=== PATIENT | female | born 1960 | race Two or more races ===

== ENCOUNTER 2022-02-09 15:34 | Inpatient (IN) | payer MEDICARE, OTHER ==
[~2022-02-09] VITALS: Ht 154.9 cm; Wt 68.0 kg
[2022-02-09] MEDS ORDERED: SODIUM CHLORIDE 0.9% 1,000 ML IV ONE (18:30)
[2022-02-09 19:31] LABS: Basophils # (auto) 0.1 10 ^3/uL (0-0.2); Basophils % (auto) 0.6 % (0.0-2.0); Eosinophils # (auto) 0 10 ^3/uL (0-0.8); Eosinophils % (auto) 0.2 % (0.0-7.0); Hematocrit 40.1 % (36.0-46.0); Hemoglobin 13.1 g/dL (12.2-16.2); Lymphocytes # (auto) 1.8 10 ^3/uL (0.4-5.4); Lymphocytes % (auto) 15.7 % (10.0-50.0); Mean Corpuscular Hgb Conc. 32.7 g/dL (32.0-36.0); Mean Corpuscular Volume 88.7 fL (80.0-100.0); Monocytes # (auto) 0.6 10 ^3/uL (0-1.3); Monocytes % (auto) 5.5 % (0.0-12.0); Red Blood Cells 4.51 10^6/uL (4.0-5.20); Red Cell Distribution Width 13.8 % (11.8-14.3); White Blood Cell 11.6 10^3/uL (4.4-10.8)
[2022-02-09 19:56] LABS: Albumin 4.1 g/dL (3.4-5.0); Calcium 9.5 mg/dL (8.5-10.1); Potassium 4.3 mmol/L (3.5-5.1)
[2022-02-09 20:00] LABS: BUN/Creatinine Ratio 14.2; Bilirubin, Total 0.5 mg/dL (0.2-1.0); Total Protein 7.6 g/dL (6.4-8.2)
[2022-02-09] MEDS ORDERED: ASPirin 325 MG TAB PO ONE (20:30)
[2022-02-09 23:52] LABS: Urine Bacteria MOD /hpf (None Seen); Urine Blood 1+ /uL (Negative); Urine Specific Gravity 1.004 (1.001-1.035); Urine WBC 2 /hpf (0 - 5)
[2022-02-10] MEDS ORDERED: NITROGLYCERIN 0.4 MG SL TAB SL PRN (05:15)
[2022-02-10] MEDS ORDERED: ACETAMINOPHEN 325 MG TAB PO PRN (05:15)
[2022-02-10] MEDS ORDERED: ONDANSETRON HCL 4 MG/2 ML VIAL IV PRN (05:15)
[2022-02-10] MEDS ORDERED: MORPHINE SULFATE INJ 2 MG/ml SYRG IV PRN (05:15)
[2022-02-10] MEDS: ENOXAPARIN SOD 40 MG/0.4 ML SYRINGE SC SCH (09:58)
[2022-02-10] MEDS: ASPirin 81 mg TAB PO SCH (09:58)
[2022-02-10] MEDS: PANTOPRAZOLE 40 MG TAB PO SCH (09:58)
[2022-02-10] MEDS: NICOTINE 21MG/24 HR TOPICAL PATCH TD SCH (09:58)
[2022-02-10] MEDS ORDERED: ENOXAPARIN SOD 40 MG/0.4 ML SYRINGE SC ONE (11:00)
[2022-02-10] MEDS ORDERED: ATORVASTATIN 20 MG TAB PO ONE (11:00)
[2022-02-10] MEDS ORDERED: CLOPIDOGREL BISULFATE 75 MG TAB PO ONE (11:00)
[2022-02-10] MEDS: SODIUM CHLORIDE 0.9% 1,000 ML IV SCH ×2 (12:13→23:55)
[2022-02-10 22:00] VITALS: BP 146/72
[2022-02-10 23:44] VITALS: BP 146/72
[2022-02-11] VITALS (7 sets, daily range): BP systolic 127–154; BP diastolic 48–73
[2022-02-11] MEDS ORDERED: LISI-716 PO (00:42)
[2022-02-11] MEDS ORDERED: LEVO50TA7 PO (00:42)
[2022-02-11 06:36] LABS: BUN/Creatinine Ratio 21.5; Calcium 8.2 mg/dL (8.5-10.1); Potassium 4.1 mmol/L (3.5-5.1)
[2022-02-11] MEDS: SODIUM CHLORIDE 0.9% 1,000 ML IV SCH ×2 (08:00→18:00)
[2022-02-11] MEDS: ASPirin 81 mg TAB PO SCH (09:39)
[2022-02-11] MEDS: PANTOPRAZOLE 40 MG TAB PO SCH (09:39)
[2022-02-11] MEDS: ENOXAPARIN SOD 40 MG/0.4 ML SYRINGE SC SCH (09:41)
[2022-02-11] MEDS: NICOTINE 21MG/24 HR TOPICAL PATCH TD SCH (09:41)
[2022-02-12] MEDS: SODIUM CHLORIDE 0.9% 1,000 ML IV SCH (04:00)
[2022-02-12 05:00] VITALS: BP 141/73
[2022-02-12] MEDS ORDERED: ADENOSINE 57 MG in GIVE UN-DILUTED 0 ML IV ONE (08:00)
[2022-02-12 09:00] VITALS: BP 167/64
[2022-02-12] MEDS: ASPirin 81 mg TAB PO SCH (10:24)
[2022-02-12] MEDS: PANTOPRAZOLE 40 MG TAB PO SCH (10:25)
[2022-02-12] MEDS: ENOXAPARIN SOD 40 MG/0.4 ML SYRINGE SC SCH (10:25)
[2022-02-12] MEDS: NICOTINE 21MG/24 HR TOPICAL PATCH TD SCH (10:26)
[2022-02-12 13:37] VITALS: BP 125/56
[2022-02-12] MEDS ORDERED: LEVOTHYROXINE SODIUM 50 MCG TAB PO ONE (15:45)
[2022-02-12] MEDS ORDERED: ATOR20TA50 PO (16:08)
[2022-02-12 17:00] VITALS: BP 127/63
[2022-02-13] MEDS ORDERED: LEVOTHYROXINE SODIUM 50 MCG TAB PO SCH (07:00)
[2022-02-13] MEDS ORDERED: LISINOPRIL 10 MG TAB PO SCH (10:00)
== END 2022-02-12 18:30 | disposition home or self-care (01) | DRG 281 ==
LOC: EDBD 15:34 → ER 15:34 → TELE 02-10 05:15 → TELE-EAST 02-10 21:15
PROVIDERS: ADMIT Nurse Practitioner; ATTEND Internal Medicine Nephrology
DX: R07.9 Chest pain, unspecified (principal); I21.A1 Myocardial infarction type 2; N17.9 Acute kidney failure, unspecified; R65.10 Systemic inflammatory response syndrome (SIRS) of non-infectious origin without acute organ dysfunction; E03.9 Hypothyroidism, unspecified; E66.9 Obesity, unspecified; E78.5 Hyperlipidemia, unspecified; I10 Essential (primary) hypertension; J44.9 Chronic obstructive pulmonary disease, unspecified; K21.9 Gastro-esophageal reflux disease without esophagitis; Z20.822 Contact with and (suspected) exposure to COVID-19; Z87.891 Personal history of nicotine dependence; Z68.28 Body mass index [BMI] 28.0-28.9, adult
CPT/HCPCS: 36415; 71045; 78452; 80048; 80053; 81001; 82550; 82962; 83605; 84484; 85025; 85379; 87040; 93005; 93017; 93306; 93970; 96360; G0378; J0153